=== PATIENT | male | born 1950 | race Caucasian/White ===

== ENCOUNTER 2017-10-03 07:52 | Day surgery (SDC) | payer OTHER, MEDICARE ==
[~2017-10-03] VITALS: Ht 177.8 cm; Wt 71.3 kg
[~2017-10-03 07:52] MED LIST: ASCO500; ASPI325; ATOR40TA PO; Amlodipine Besyl5 MG PO; BUPR100ER; CLOP75; ERGO400; ERGO50000; LEVO750 PO; LIDO5TP TOP; Lopressor 25 mg25 MG PO; MULVITMIND; PARO10; SIMV40; VARDENAFIL HCL
[2017-10-03] MEDS ORDERED: TIOT18 (08:33)
== END 2017-10-03 09:52 | disposition home or self-care (01) ==
LOC: ORSCSDS 07:52
PROVIDERS: Ophthalmology
PROC: 08RJ3JZ Replacement of Right Lens with Synthetic Substitute, Percutaneous Approach (ICD-10-PCS; principal; 2017-10-03 09:30)
DX: H25.11 Age-related nuclear cataract, right eye (principal); I25.2 Old myocardial infarction; J44.9 Chronic obstructive pulmonary disease, unspecified; I10 Essential (primary) hypertension; E78.00 Pure hypercholesterolemia, unspecified; F17.210 Nicotine dependence, cigarettes, uncomplicated; Z79.01 Long term (current) use of anticoagulants; Z79.82 Long term (current) use of aspirin; Z79.899 Other long term (current) drug therapy
CPT/HCPCS: J2250; J3301; J7040; V2632

== ENCOUNTER 2021-07-21 06:25 | Day surgery (SDC) | payer OTHER ==
[~2021-07-21] VITALS: Ht 177.8 cm; Wt 73.0 kg
[~2021-07-21 06:25] MED LIST changes: +ALBU90OI INH; +AMLO10 PO; -Amlodipine Besyl5 MG PO; +NITR.4SL SL; +TIOT18
--- NOTE | 2021-07-21 12:30 | NUR ---
ATTEMPTED TO RELEASE AIR FROM R RADIAL TR BAND, IT BLED. RE-INFALTED. NO LONGER BLEEDING OR HEMATOMA. VSS.RENITAN.
--- NOTE | 2021-07-21 13:05 | NUR ---
PT AIR DEFLATED FULLY FROM TR BAND. NO BLEEDING OR HEMATOMA NOTED. NADN. VSS. AMBULATES TO RESTROOM AND BACK WITHOUT DIFF.
--- NOTE | 2021-07-21 13:50 | NUR ---
PT TR BAND REMOVED. DOT CLOTH APPLIED WITH SPLINT AND SLING. IV DC'D. CATH INTACT. PRESSURE DSG IN PLACE. PT MINIMAL ASSISTANCE WITH DRESSING SELF. PT VERBALIZES UNDERSTANDING WRITTEN AND VERBAL INSTRUCTIONS. DENIES QUESTIONS. PT DC TO HOME VIA WC BY DAUGHTER.
== END 2021-07-21 13:50 | disposition home or self-care (01) ==
LOC: MHTC 06:25
PROC: 4A023N8 Measurement of Cardiac Sampling and Pressure, Bilateral, Percutaneous Approach (ICD-10-PCS; principal; 2021-07-21)
PROC: B2111ZZ Fluoroscopy of Multiple Coronary Arteries using Low Osmolar Contrast (ICD-10-PCS; principal; 2021-07-21)
DX: I08.0 Rheumatic disorders of both mitral and aortic valves (principal); I25.10 Atherosclerotic heart disease of native coronary artery without angina pectoris; I10 Essential (primary) hypertension; E78.5 Hyperlipidemia, unspecified; F17.210 Nicotine dependence, cigarettes, uncomplicated; Z86.718 Personal history of other venous thrombosis and embolism
CPT/HCPCS: 76937; 93460; 99152; 99153; C1769; C1894; J1644; J2250; J3010; J7030; J7050; Q9967

== ENCOUNTER 2022-02-07 06:19 | Day surgery (SDC) | payer OTHER ==
[~2022-02-07] VITALS: Ht 177.8 cm; Wt 73.0 kg
[2022-02-07] MEDS ORDERED: XARELTO20 MG PO (06:30)
[2022-02-07] MEDS ORDERED: FURO40 PO (06:30)
== END 2022-02-07 23:27 | disposition home or self-care (01) ==
LOC: MHTC 06:19
PROC: 5A2204Z Restoration of Cardiac Rhythm, Single (ICD-10-PCS; principal; 2022-02-07)
DX: I48.91 Unspecified atrial fibrillation (principal); I10 Essential (primary) hypertension; I25.10 Atherosclerotic heart disease of native coronary artery without angina pectoris; F17.200 Nicotine dependence, unspecified, uncomplicated; Z95.5 Presence of coronary angioplasty implant and graft; Z79.899 Other long term (current) drug therapy; Z79.01 Long term (current) use of anticoagulants
CPT/HCPCS: 92960; J2704; J7030

== ENCOUNTER 2022-08-21 19:34 | Inpatient (IN) | payer OTHER ==
[~2022-08-21] VITALS: Ht 180.3 cm; Wt 67.3 kg
[~2022-08-21 19:34] MED LIST changes: +Amiodarone HCl200 MG PO; +FURO40 PO; +PANT40 PO; +XARELTO20 MG PO
[2022-08-21 20:00] LABS: Mean Corpuscular HGB 31.3 pg (26.0-34.0); Mean Corpuscular HGB Conc 32.9 g/dL (31.5-36.5); Mean Corpuscular Volume 95 fL (80-100); Mean Platelet Volume 11.5 fL (9.1-12.4); NRBC ABSOLUTE 0.03 K/mm3 (0.00-0.02); NRBC Auto 0.2 /100 WBC (0.0-0.2); Platelet Count 208 K/mm3 (150-400); RDW Coefficient Variation 17.9 % (11.7-14.2); RDW Standard Deviation 62.2 fL (35.1-46.3); Red Blood Cell Count 1.79 M/mm3 (4.30-5.90); White Blood Cell Count 19.59 K/mm3 (4.00-11.30)
[2022-08-21 20:10] LABS: Albumin, Blood 3.4 g/dL (3.4-5.0); Albumin/Globulin Ratio 1.1 (0.8-1.8); Bilirubin, Total 0.4 mg/dL (0.1-1.0); Bun/Creatinine Ratio 23.6 (12.0-20.0); Calcium, Blood 8.3 mg/dL (8.5-10.1); Creatinine, Blood 1.44 mg/dL (0.60-1.20); Potassium, Blood 4.3 mmol/L (3.5-5.5); Total Protein, Blood 6.4 g/dL (6.4-8.2)
[2022-08-21 20:11] LABS: Hemoglobin 5.6 g/dL (13.5-17.5)
[2022-08-21 20:51] LABS: BAND PERCENT MAN 3 % (0-8); BASOPHILS PERCENT MAN 0 % (0-2); EOSINOPHILS PERCENT MAN 0 % (0-6); LYMPHOCYTES ABSOLUTE MAN 0.58 K/mm3 (0.84-5.20); LYMPHOCYTES PERCENT MAN 3 % (21-46); MONOCYTES ABSOLUTE MAN 0.19 K/mm3 (0.16-1.47); MONOCYTES PERCENT MAN 1 % (4-13); MYELOCYTE ABSOLUTE MAN 0.19 K/mm3 (0.00-0.00); MYELOCYTE PERCENT MAN 1 % (0-0); NEUTROPHILS ABSOLUTE MAN 18.61 K/mm3 (1.96-9.15); SEG NEUTROPHILS PERCENT MAN 92 % (41-73); TOTAL CELLS COUNTED 100
[2022-08-21 21:09] LABS: Hematocrit 15.2 % (37.0-53.0)
--- NOTE | 2022-08-21 22:15 | NUR ---
TRANSFER OF CARE NOTE RECEIVED REPORT FROM FAUSTO TONEY RN IN ER. PT ARRIVED IN [facility] A/Ox4 AND COOPERATIVE WITH CARE POVIDED BY STAFF. SEE ADMISSION ASSESSMENT FOR MORE DETAILS. PROTONIX AND BLOOD RUNNING ORDERED PER EMAR IN RIGHT IV ACCESS SITES. NO ADVERSE EFFECTS (SOB, ITCHING, RASH, INCREASE IN TEMP ETC.) NOTED UPON ARRIVAL. WILL CONTINUE BLOOD VITALS ON PAPER CHART. WILL CONTINUE TO LOOK THROUGH MD'S ORDERS. LEX WEINER UPON ARRIVAL
--- NOTE | 2022-08-22 03:13 | NUR ---
UPDATE STARTED SECOND UNIT OF PRBC's ORDERED PER EMAR. NO ADVERSE REACTION TO BLOOD PRODUCTS NOTED WITHIN FIRST 15MIN OF ADMINISTRATION. NO RASH, SOB, INCREASE IN TEMP, CHANGES IN HR/BP NOTED WITH ADMIN OF BLOOD. WILL CONTINUE TO MONITOR PT T/O TRANFUSION PROCCESS. NO NEW ORDERS AT THIS TIME. LEX, VSS
--- NOTE | 2022-08-22 05:10 | NUR ---
END OF SHIFT NOTE PT IS A/Ox4 AND IS COOPERATIVE WITH CARE PROVIDED BY MEMBERS OF STAFF. PT ARRIVED IN PCU 16 FROM THE ER AROUND 2230 ON 08/21/21. SEE TRANSFER OF SHIFT NOTE FOR MORE DETAILS. MAINTAINED SPO2 >90% T/O THE SHIFT WITH NO SOB OR DYSPNEA NOTED. CARDIAC PAGAN, BP HAS CONTINUED TO IMPROVE DURING BLOOD TRANSFUSIONS. NO CP OR PRESSURE REPORTED T/O THE SHIFT. NO INCONTINENCE OF BOWEL THIS SHIFT, BUT PT REPORTED EPISODES OF MELENA X2 WEEKS PRIOR TO ADMISSION. CONTINUES TO REPORT GENERAL WEAKNESS. 2ND UNIT OF PRBC'S IS CONTINING TO INFUSE OF THIS NOTE WITH NO ADVERSE REACTION NOTED. VSS, NADN T/O THE SHIFT. NO NEW ORDERS AT THIS TIME, WILL REPORT TO ONCOMING JOSE
[2022-08-22 08:17] LABS: Hematocrit 19.5 % (37.0-53.0); Hemoglobin 6.7 g/dL (13.5-17.5); Mean Corpuscular HGB 30.7 pg (26.0-34.0); Mean Corpuscular HGB Conc 34.4 g/dL (31.5-36.5); Platelet Count 158 K/mm3 (150-400); RDW Coefficient Variation 19.3 % (11.7-14.2); RDW Standard Deviation 62.6 fL (35.1-46.3); Red Blood Cell Count 2.18 M/mm3 (4.30-5.90); White Blood Cell Count 15.51 K/mm3 (4.00-11.30)
[2022-08-22 08:33] LABS: Bun/Creatinine Ratio 23.8 (12.0-20.0); Calcium, Blood 8.2 mg/dL (8.5-10.1); Creatinine, Blood 1.26 mg/dL (0.60-1.20); Potassium, Blood 3.8 mmol/L (3.5-5.5)
[2022-08-22 08:36] LABS: Mean Corpuscular Volume 89 fL (80-100)
--- NOTE | 2022-08-22 17:56 | NUR ---
SHIFT SUMMARY ASSUMED CARE AT 0700, A/A/OX4 DURING SHIFT. SBA IN ROOM, REPOSITIONS SELF ON BED. ONE DARK TARY STOOL DURING SHIFT, NO MELENA OBSERVED. CLEAR DIET TODAY, TOLERATED WELL. PROTONIX INFUSING AT 10ML/HR PER ORDERS. PREP ORDERED FOR TONIGHT FOR EGD TOMORROW, VSS, PLEASANT AND COOPERATIVE WITH CARE. WILL CONTINUE TO MONITOR AND TREAT UNTIL CHANGE OF SHIFT.
--- NOTE | 2022-08-23 05:32 | NUR ---
SHIFT SUMMARY PT IS A/Ox4 AND IS COOPERATIVE WITH CARE PROVIDED BY MEMBERS OF STAFF. ABLE TO ANSWER QUESTIONS APPROPRIATELY ALTHOUGH HE IS [place]. MAINTAINS SPO2 >90% ON RA WITH NO SOB OR DYSPNEA NOTED. CARDIAC PAGAN, PT IS SB-SR/ 50-60'S WITH NO NEW REPORTS OF CP OR PRESSURE. BP'S REMAIN STABLE. PT RECEIVED 1 UNIT PRBC'S DURING DAYSHIFT AND H&H CONTINUES TO TREND UP. PT RECEIVED BOWEL PREP ORDERD AND PASSED 3 LARGE BLACK/LIQUID BM'S. PT NPO SINCE MIDNIGHT FOR PROCEDURE THIS AM. ABLE TO ABULATE TO BSC, BUT PT STATES HE FEELS "WEAK". NADN, VSS T/O THE SHIFT. WILL REPORT INFORMATION TO ONCOMING DAYSHIFT NURSE
[2022-08-23 07:26] LABS: Hematocrit 24.1 % (37.0-53.0); Hemoglobin 8.3 g/dL (13.5-17.5); Mean Corpuscular HGB 30.2 pg (26.0-34.0); Mean Corpuscular HGB Conc 34.4 g/dL (31.5-36.5); Mean Corpuscular Volume 88 fL (80-100); Mean Platelet Volume 10.8 fL (9.1-12.4); NRBC ABSOLUTE 0.03 K/mm3 (0.00-0.02); NRBC Auto 0.3 /100 WBC (0.0-0.2); Platelet Count 148 K/mm3 (150-400); RDW Coefficient Variation 19.5 % (11.7-14.2); RDW Standard Deviation 62.2 fL (35.1-46.3); Red Blood Cell Count 2.75 M/mm3 (4.30-5.90); White Blood Cell Count 10.44 K/mm3 (4.00-11.30)
[2022-08-23 07:43] LABS: Bun/Creatinine Ratio 18.8 (12.0-20.0); Calcium, Blood 8.1 mg/dL (8.5-10.1); Creatinine, Blood 1.17 mg/dL (0.60-1.20); Potassium, Blood 3.8 mmol/L (3.5-5.5)
[2022-08-23 07:57] LABS: BASOPHILS PERCENT MAN 0 % (0-2); EOSINOPHILS PERCENT MAN 0 % (0-6); LYMPHOCYTES ABSOLUTE MAN 0.93 K/mm3 (0.84-5.20); LYMPHOCYTES PERCENT MAN 9 % (21-46); MONOCYTES PERCENT MAN 2 % (4-13); MYELOCYTE PERCENT MAN 1 % (0-0); NEUTROPHILS ABSOLUTE MAN 9.18 K/mm3 (1.96-9.15); SEG NEUTROPHILS PERCENT MAN 88 % (41-73); TOTAL CELLS COUNTED 100
--- NOTE | 2022-08-23 17:00 | NUR ---
PT RECENTLY HERE BY DIMITRIS WITH TELE IN PLACE, TELE NOTIFIED. Patient states colon prep results clear. History, Chart, Medications and Allergies reviewed before start of procedure.Lungs clear T/O to Auscultation. Patient confirms NPO status and agrees with scheduled surgery. Pre-Op teaching done. Pt verbalizes understanding.
--- NOTE | 2022-08-23 17:22 | NUR ---
08/23/22 1722 Joe Jj HISTORY, CHART, MEDICATIONS AND ALLERGIES REVIEWED BEFORE START OF PROCEDURE. PATIENT CONFIRMS NPO STATUS AND AGREES WITH SCHEDULED PROCEDURE. 3-LEAD EKG REVIEWED WITH PHYSICIAN PRIOR TO START OF PROCEDURE. MONITOR INTACT WITH CONTINUOUS PULSE OXIMETRY,CAPNOGRAPHY, 3-LEAD EKG, INTERMITTENT BP. SUPPLEMENTAL O2 TO BE TITRATED THROUGHOUT PROCEDURE TO MAINTAIN O2 SATURATION ABOVE 90%. PATIENT DETERMINED TO BE ASA APPROPRIATE FOR PROPOFOL SEDATION PRIOR TO START OF PROCEDURE BY DR. GONZALES.
--- NOTE | 2022-08-23 18:20 | NUR ---
SHIFT SUMMARY; ASSUMED CARE AT 0700, A/A/OX4 DURING SHIFT. BOWEL PREP FOR COLONOSCOPY STARTED LAST NIGHT. UP TO COMMODE SEVERAL TIMES WITH MINIMAL ASSIST. VSS, PLEASANT AND COOPERATIVE WITH CARE. NO MELANA DURING SHIFT, TAKEN TO DAY SURG FOR EGD IN EVENING, STILL IN PROCEDURE AT CHANGE OF SHIFT.
--- NOTE | 2022-08-23 18:31 | NUR ---
TO PCU FROM [facility] AT 1800, ANGIO COMPLETED, RIGHT WRIST SITE TR BAND INPLACE, NO SWELLING OR HEMATOMA, RADIAL PULSE PALBABLE.NO SEDATION MEDS GIVEN DURING PROCEDURE. 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
[2022-08-24 06:18] LABS: Hematocrit 25.4 % (37.0-53.0); Hemoglobin 8.6 g/dL (13.5-17.5)
[2022-08-24 09:17] LABS: Percent Saturation 7.3 % (20.0-50.0)
[2022-08-24] MEDS ORDERED: FERRIC X-150150 M1 PO (11:25)
== END 2022-08-24 12:23 | disposition home or self-care (01) | DRG 394 ==
LOC: ER 19:34 → PCU 20:48
PROVIDERS: Emergency Medicine; Internal Medicine; Student in an Organized Health Care Education/Training Program; ADMIT Internal Medicine
PROC: 30233N1 Transfusion of Nonautologous Red Blood Cells into Peripheral Vein, Percutaneous Approach (ICD-10-PCS; 2022-08-21)
PROC: 0DBH8ZZ Excision of Cecum, Via Natural or Artificial Opening Endoscopic (ICD-10-PCS; 2022-08-23)
PROC: 0DB58ZX Excision of Esophagus, Via Natural or Artificial Opening Endoscopic, Diagnostic (ICD-10-PCS; principal; 2022-08-23 09:45)
PROC: 0DBK8ZZ Excision of Ascending Colon, Via Natural or Artificial Opening Endoscopic (ICD-10-PCS; 2022-08-23 09:45)
PROC: 0DBL8ZZ Excision of Transverse Colon, Via Natural or Artificial Opening Endoscopic (ICD-10-PCS; 2022-08-23 09:45)
PROC: 0DBN8ZZ Excision of Sigmoid Colon, Via Natural or Artificial Opening Endoscopic (ICD-10-PCS; 2022-08-23 09:45)
DX: K63.5 Polyp of colon (principal); D62 Acute posthemorrhagic anemia; K92.2 Gastrointestinal hemorrhage, unspecified; N17.9 Acute kidney failure, unspecified; I25.10 Atherosclerotic heart disease of native coronary artery without angina pectoris; J44.9 Chronic obstructive pulmonary disease, unspecified; I10 Essential (primary) hypertension; D72.829 Elevated white blood cell count, unspecified; R91.1 Solitary pulmonary nodule; M48.00 Spinal stenosis, site unspecified; I48.0 Paroxysmal atrial fibrillation; M54.9 Dorsalgia, unspecified; G89.29 Other chronic pain; K44.9 Diaphragmatic hernia without obstruction or gangrene; K57.30 Diverticulosis of large intestine without perforation or abscess without bleeding; E78.5 Hyperlipidemia, unspecified; M19.90 Unspecified osteoarthritis, unspecified site; I34.0 Nonrheumatic mitral (valve) insufficiency; I35.0 Nonrheumatic aortic (valve) stenosis; I73.9 Peripheral vascular disease, unspecified; Z96.651 Presence of right artificial knee joint; Z96.611 Presence of right artificial shoulder joint; I25.2 Old myocardial infarction; Z98.890 Other specified postprocedural states; Z95.5 Presence of coronary angioplasty implant and graft; Z87.891 Personal history of nicotine dependence; Z79.01 Long term (current) use of anticoagulants; Z95.2 Presence of prosthetic heart valve; Z79.899 Other long term (current) drug therapy; Z79.02 Long term (current) use of antithrombotics/antiplatelets; Z79.51 Long term (current) use of inhaled steroids
CPT/HCPCS: 36415; 36430; 71046; 80048; 80053; 82728; 83540; 83550; 83880; 84484; 85014; 85018; 85025; 85027; 86803; 86850; 86900; 86901; 86923; 88305; 93005; 93010; 96365; 96376; 99285-25; A9270; C9113; J2704; J2765; J7030; J7040; J7120; P9016

== ENCOUNTER 2022-08-30 13:15 | Emergency (ER) | payer OTHER ==
[~2022-08-30] VITALS: Ht 180.3 cm; Wt 72.6 kg
[~2022-08-30 13:15] MED LIST changes: +FERRIC X-150150 M1 PO; -TIOT18; +TIOT18 INH
[2022-08-30 14:04] LABS: Hematocrit 29.3 % (37.0-53.0); Hemoglobin 9.5 g/dL (13.5-17.5); Mean Corpuscular HGB 29.9 pg (26.0-34.0); Mean Corpuscular HGB Conc 32.4 g/dL (31.5-36.5); Mean Corpuscular Volume 92 fL (80-100); Platelet Count 150 K/mm3 (150-400); RDW Standard Deviation 59.8 fL (35.1-46.3); Red Blood Cell Count 3.18 M/mm3 (4.30-5.90); White Blood Cell Count 9.32 K/mm3 (4.00-11.30)
[2022-08-30 14:09] LABS: Albumin, Blood 3.3 g/dL (3.4-5.0); Albumin/Globulin Ratio 1.1 (0.8-1.8); Bilirubin, Total 0.5 mg/dL (0.1-1.0); Bun/Creatinine Ratio 11.9 (12.0-20.0); Calcium, Blood 8.3 mg/dL (8.5-10.1); Creatinine, Blood 1.34 mg/dL (0.60-1.20); Globulin, Blood 3.1 g/dL (2.2-4.0); Potassium, Blood 3.6 mmol/L (3.5-5.5); Total Protein, Blood 6.4 g/dL (6.4-8.2)
[2022-08-30 15:53] LABS: BAND PERCENT MAN 3 % (0-8); BASOPHILS ABSOLUTE MAN 0.09 K/mm3 (0.00-0.23); BASOPHILS PERCENT MAN 1 % (0-2); EOSINOPHILS PERCENT MAN 0 % (0-6); LYMPHOCYTES PERCENT MAN 14 % (21-46); MONOCYTES ABSOLUTE MAN 0.09 K/mm3 (0.16-1.47); MONOCYTES PERCENT MAN 1 % (4-13); NEUTROPHILS ABSOLUTE MAN 7.82 K/mm3 (1.96-9.15); SEG NEUTROPHILS PERCENT MAN 81 % (41-73); TOTAL CELLS COUNTED 100
== END 2022-08-30 18:46 | disposition home or self-care (01) ==
LOC: ER 13:15
PROVIDERS: Emergency Medicine
DX: R07.89 Other chest pain (principal); I25.2 Old myocardial infarction; I10 Essential (primary) hypertension; J44.9 Chronic obstructive pulmonary disease, unspecified; E78.5 Hyperlipidemia, unspecified; F17.200 Nicotine dependence, unspecified, uncomplicated; Z79.02 Long term (current) use of antithrombotics/antiplatelets; Z79.899 Other long term (current) drug therapy
CPT/HCPCS: 71046; 80053; 84484; 85025; 93005; 93010; 99285-25

== ENCOUNTER 2022-09-05 07:27 | Emergency (ER) | payer OTHER ==
[~2022-09-05] VITALS: Ht 180.3 cm; Wt 72.6 kg
[~2022-09-05 07:27] MED LIST changes: +FAMO20 PO
[2022-09-05] MEDS ORDERED: XARELTO20 MG PO (08:01)
[2022-09-05 08:16] LABS: BASOPHILS ABSOLUTE AUTO 0.13 K/mm3 (0.00-0.23); BASOPHILS PERCENT AUTO 1 % (0-2); EOSINOPHILS ABSOLUTE AUTO 0.04 K/mm3 (0.00-0.68); EOSINOPHILS PERCENT AUTO 0 % (0-6); Hematocrit 22.7 % (37.0-53.0); Hemoglobin 7.6 g/dL (13.5-17.5); Mean Corpuscular HGB 29.8 pg (26.0-34.0); Mean Corpuscular HGB Conc 33.5 g/dL (31.5-36.5); Mean Corpuscular Volume 89 fL (80-100); Mean Platelet Volume 11.6 fL (9.1-12.4); Platelet Count 104 K/mm3 (150-400); RDW Coefficient Variation 20.1 % (11.7-14.2); RDW Standard Deviation 60.1 fL (35.1-46.3); Red Blood Cell Count 2.55 M/mm3 (4.30-5.90)
[2022-09-05 08:20] LABS: IMMATURE GRAN ABSOLUTE AUTO 0.07 K/mm3 (0.00-0.10); IMMATURE GRAN PERCENT AUTO 1 % (0-1); LYMPHOCYTES ABSOLUTE AUTO 0.96 K/mm3 (0.84-5.20); LYMPHOCYTES PERCENT AUTO 7 % (21-46); MONOCYTES ABSOLUTE AUTO 0.16 K/mm3 (0.16-1.47); MONOCYTES PERCENT AUTO 1 % (4-13); NEUTROPHILS ABSOLUTE AUTO 12.04 K/mm3 (1.96-9.15); NEUTROPHILS PERCENT AUTO 90 % (41-73)
[2022-09-05 08:24] LABS: Albumin, Blood 3.3 g/dL (3.4-5.0); Albumin/Globulin Ratio 1.2 (0.8-1.8); Bilirubin, Total 0.7 mg/dL (0.1-1.0); Bun/Creatinine Ratio 34.3 (12.0-20.0); Calcium, Blood 8.4 mg/dL (8.5-10.1); Creatinine, Blood 1.43 mg/dL (0.60-1.20); Globulin, Blood 2.8 g/dL (2.2-4.0); Potassium, Blood 3.8 mmol/L (3.5-5.5); Total Protein, Blood 6.1 g/dL (6.4-8.2)
== END 2022-09-05 17:25 | disposition home or self-care (01) ==
LOC: ER 07:27
PROVIDERS: Emergency Medicine
DX: K92.2 Gastrointestinal hemorrhage, unspecified (principal); I25.2 Old myocardial infarction; I10 Essential (primary) hypertension; J44.9 Chronic obstructive pulmonary disease, unspecified; E78.5 Hyperlipidemia, unspecified; F17.210 Nicotine dependence, cigarettes, uncomplicated; Z79.899 Other long term (current) drug therapy
CPT/HCPCS: 36415; 36430; 80053; 82272; 85025; 86850; 86900; 86901; 86923; 96374; 99285-25; C9113; J7030; P9016

== ENCOUNTER 2024-02-07 10:55 | Day surgery (SDC) | payer OTHER ==
[2024-02-07 11:45] LABS: BASOPHILS ABSOLUTE AUTO 0.01 K/mm3 (0.00-0.23); BASOPHILS PERCENT AUTO 0 % (0-2); EOSINOPHILS PERCENT AUTO 0 % (0-6); Hematocrit 27.7 % (37.0-53.0); Hemoglobin 9.5 g/dL (13.5-17.5); Mean Corpuscular HGB 32.1 pg (26.0-34.0); Mean Corpuscular HGB Conc 34.3 g/dL (31.5-36.5); Mean Corpuscular Volume 94 fL (80-100); RDW Coefficient Variation 17.3 % (11.7-14.2); RDW Standard Deviation 57.5 fL (35.1-46.3); Red Blood Cell Count 2.96 M/mm3 (4.30-5.90); White Blood Cell Count 2.84 K/mm3 (4.00-11.30)
[2024-02-07 11:51] LABS: IMMATURE GRAN ABSOLUTE AUTO 0.02 K/mm3 (0.00-0.10); IMMATURE GRAN PERCENT AUTO 1 % (0-1); LYMPHOCYTES ABSOLUTE AUTO 0.58 K/mm3 (0.84-5.20); LYMPHOCYTES PERCENT AUTO 20 % (21-46); MONOCYTES ABSOLUTE AUTO 0.04 K/mm3 (0.16-1.47); MONOCYTES PERCENT AUTO 1 % (4-13); NEUTROPHILS ABSOLUTE AUTO 2.19 K/mm3 (1.96-9.15); NEUTROPHILS PERCENT AUTO 77 % (41-73)
[2024-02-07 11:53] LABS: Platelet Count 5 K/mm3 (150-400)
[2024-02-07 12:22] LABS: BASOPHILS PERCENT MAN 0 % (0-2); EOSINOPHILS PERCENT MAN 0 % (0-6); LYMPHOCYTES ABSOLUTE MAN 0.34 K/mm3 (0.84-5.20); LYMPHOCYTES PERCENT MAN 12 % (21-46); MONOCYTES PERCENT MAN 0 % (4-13); NEUTROPHILS ABSOLUTE MAN 2.49 K/mm3 (1.96-9.15); SEG NEUTROPHILS PERCENT MAN 88 % (41-73); TOTAL CELLS COUNTED 100
[2024-02-07 12:41] LABS: Bilirubin, Total 1.9 mg/dL (0.1-1.0); Bun/Creatinine Ratio 25.4 (12.0-20.0); Calcium, Blood 8.4 mg/dL (8.5-10.1); Creatinine, Blood 0.95 mg/dL (0.60-1.20); Globulin, Blood 3.1 g/dL (2.2-4.0); Potassium, Blood 3.7 mmol/L (3.5-5.5); Total Protein, Blood 6.1 g/dL (6.4-8.2)
[2024-02-07] MEDS ORDERED: NS 250 ML IV SCH (12:50)
[2024-02-07 14:48] VITALS: BP 129/62
[2024-02-07 15:59] VITALS: BP 138/68
== END 2024-02-07 16:08 | disposition home or self-care (01) ==
LOC: ATC 10:55 → LAB SHORT 10:55 → EDSTATUS 12:07 → ATC 16:08
PROVIDERS: Internal Medicine Hematology & Oncology
DX: C92.00 Acute myeloblastic leukemia, not having achieved remission (principal); D69.6 Thrombocytopenia, unspecified; I10 Essential (primary) hypertension; I25.10 Atherosclerotic heart disease of native coronary artery without angina pectoris; J44.9 Chronic obstructive pulmonary disease, unspecified; E78.5 Hyperlipidemia, unspecified; E03.9 Hypothyroidism, unspecified; F17.210 Nicotine dependence, cigarettes, uncomplicated; Z79.890 Hormone replacement therapy; Z79.899 Other long term (current) drug therapy
CPT/HCPCS: 36415; 36430; 80053; 85025; 86900; 86901; J7050; P9035

== ENCOUNTER 2024-02-11 07:21 | Day surgery (SDC) | payer OTHER ==
[2024-02-11 14:20] LABS: Hematocrit 20.3 % (37.0-53.0); Hemoglobin 6.8 g/dL (13.5-17.5); Mean Corpuscular HGB 31.5 pg (26.0-34.0); Mean Corpuscular HGB Conc 33.5 g/dL (31.5-36.5); Mean Corpuscular Volume 94 fL (80-100); RDW Coefficient Variation 16.4 % (11.7-14.2); RDW Standard Deviation 55.2 fL (35.1-46.3); Red Blood Cell Count 2.16 M/mm3 (4.30-5.90)
[2024-02-11 14:25] LABS: Albumin, Blood 2.7 g/dL (3.4-5.0); Albumin/Globulin Ratio 0.9 (0.8-1.8); Bun/Creatinine Ratio 25.4 (12.0-20.0); Calcium, Blood 8.4 mg/dL (8.5-10.1); Creatinine, Blood 0.79 mg/dL (0.60-1.20); Globulin, Blood 3.1 g/dL (2.2-4.0); Potassium, Blood 4.6 mmol/L (3.5-5.5); Total Protein, Blood 5.8 g/dL (6.4-8.2)
[2024-02-11] MEDS ORDERED: NS 250 ML IV SCH (14:45)
[2024-02-11 15:11] LABS: BASOPHILS PERCENT AUTO 0 % (0-2); EOSINOPHILS PERCENT AUTO 0 % (0-6); IMMATURE GRAN PERCENT AUTO 0 % (0-1); LYMPHOCYTES ABSOLUTE AUTO 0.36 K/mm3 (0.84-5.20); LYMPHOCYTES PERCENT AUTO 44 % (21-46); MONOCYTES ABSOLUTE AUTO 0.01 K/mm3 (0.16-1.47); MONOCYTES PERCENT AUTO 1 % (4-13); NEUTROPHILS ABSOLUTE AUTO 0.45 K/mm3 (1.96-9.15); NEUTROPHILS PERCENT AUTO 55 % (41-73)
[2024-02-11 15:13] VITALS: BP 138/65
[2024-02-11 15:14] LABS: Platelet Count 8 K/mm3 (150-400); White Blood Cell Count 0.82 K/mm3 (4.00-11.30)
[2024-02-11 15:31] VITALS: BP 128/50
[2024-02-11 16:24] VITALS: BP 138/63
[2024-02-12] MEDS ORDERED: NS 250 ML IV SCH (13:05)
== END 2024-02-12 22:49 | disposition home or self-care (01) ==
LOC: ATC 07:21 → LAB SHORT 13:11 → EDSTATUS 14:07 → ATC 14:09
PROVIDERS: Internal Medicine Hematology & Oncology
DX: C92.00 Acute myeloblastic leukemia, not having achieved remission (principal); D69.6 Thrombocytopenia, unspecified; I25.10 Atherosclerotic heart disease of native coronary artery without angina pectoris; J44.9 Chronic obstructive pulmonary disease, unspecified; E78.5 Hyperlipidemia, unspecified; E03.9 Hypothyroidism, unspecified
CPT/HCPCS: 36415; 36430; 80053; 85025; 86850; 86900; 86901; 86923; J7050; P9035

== ENCOUNTER 2024-02-12 13:31 | Day surgery (SDC) | payer OTHER ==
[2024-02-12] MEDS ORDERED: NS 250 ML IV SCH (14:10)
[2024-02-12 14:48] VITALS: BP 105/47
[2024-02-12 15:04] VITALS: BP 112/54
[2024-02-12 16:34] VITALS: BP 95/79
[2024-02-12 16:54] VITALS: BP 136/59
[2024-02-12 17:55] VITALS: BP 143/75
[2024-02-12 18:25] VITALS: BP 155/71
== END 2024-02-12 18:33 | disposition home or self-care (01) ==
LOC: ATC 13:31
DX: C92.00 Acute myeloblastic leukemia, not having achieved remission (principal); D69.6 Thrombocytopenia, unspecified; I10 Essential (primary) hypertension; I25.10 Atherosclerotic heart disease of native coronary artery without angina pectoris; E78.5 Hyperlipidemia, unspecified; F17.200 Nicotine dependence, unspecified, uncomplicated; Z79.01 Long term (current) use of anticoagulants; Z79.899 Other long term (current) drug therapy
CPT/HCPCS: 36430; 86850; 86900; 86901; 86923; J7050; P9016

== ENCOUNTER 2024-02-14 21:18 | Inpatient (IN) | payer OTHER ==
[~2024-02-14] VITALS: Ht 180.3 cm; Wt 70.3 kg
[2024-02-14 21:50] LABS: Hematocrit 22.2 % (37.0-53.0); Hemoglobin 7.9 g/dL (13.5-17.5); Mean Corpuscular HGB 31.7 pg (26.0-34.0); Mean Corpuscular HGB Conc 35.6 g/dL (31.5-36.5); Mean Corpuscular Volume 89 fL (80-100); RDW Coefficient Variation 15.3 % (11.7-14.2); RDW Standard Deviation 49.1 fL (35.1-46.3); Red Blood Cell Count 2.49 M/mm3 (4.30-5.90)
[2024-02-14 21:56] LABS: Mean Platelet Volume 10.3 fL (9.1-12.4)
[2024-02-14 21:58] LABS: Platelet Count 7 K/mm3 (150-400); White Blood Cell Count 0.24 K/mm3 (4.00-11.30)
[2024-02-14] MEDS ORDERED: NS 1,000 ML IV SCH (22:10)
[2024-02-14 22:14] LABS: Alanine Aminotransfer (ALT/SGP 29 U/L (12-78); Albumin, Blood 2.6 g/dL (3.4-5.0); Albumin/Globulin Ratio 0.9 (0.8-1.8); Alk Phos 136 U/L (50-136); Anion Gap 11 mmol/L (3-11); Aspartate Aminotrans (AST/SGOT 22 U/L (12-37); Bilirubin, Total 2.6 mg/dL (0.1-1.0); Blood Urea Nitrogen 23 mg/dL (8-24); Bun/Creatinine Ratio 27.3 (12.0-20.0); CO2, Blood 24 mmol/L (21-32); Calcium, Blood 8.3 mg/dL (8.5-10.1); Chloride, Blood 105 mmol/L (98-108); Creatinine, Blood 0.84 mg/dL (0.60-1.20); Globulin, Blood 2.9 g/dL (2.2-4.0); Glomerular Filtration Rate 92 (60-); Glucose, Blood 122 mg/dL (70-99); Potassium, Blood 4.6 mmol/L (3.5-5.5); Sodium, Blood 135 mmol/L (136-145); Total Protein, Blood 5.5 g/dL (6.4-8.2)
[2024-02-14] MEDS ORDERED: CLOP75 PO (22:14)
[2024-02-14 22:15] LABS: BASOPHILS PERCENT MAN 0 % (0-2); EOSINOPHILS PERCENT MAN 0 % (0-6); LYMPHOCYTES ABSOLUTE MAN 0.21 K/mm3 (0.84-5.20); LYMPHOCYTES PERCENT MAN 88 % (21-46); MONOCYTES ABSOLUTE MAN 0.01 K/mm3 (0.16-1.47); MONOCYTES PERCENT MAN 8 % (4-13); SEG NEUTROPHILS PERCENT MAN 4 % (41-73); TOTAL CELLS COUNTED 25
[2024-02-14] MEDS ORDERED: ALLO100 PO (22:15)
[2024-02-14] MEDS ORDERED: GABA100 PO (22:16)
[2024-02-14] MEDS ORDERED: LEVSOD137 PO (22:17)
[2024-02-14 22:29] LABS: Ethanol (Alcohol), Blood, Med <3 mg/dL
[2024-02-14 22:55] LABS: International Normalized Ratio 1.55; Prothrombin Time Results 16.1 Sec (9.7-11.5)
[2024-02-15] MEDS ORDERED: CefTRIAXone Sodium 1,000 MG in NS 100 ML IV ONE (00:55)
[2024-02-15] MEDS ORDERED: Vancomycin HCL 2,000 MG in NS 520 ML IV ONE (00:55)
[2024-02-15] MEDS ORDERED: Ondansetron HCl 2 MG / ML 2ML Vial IV PRN (01:10)
[2024-02-15] MEDS ORDERED: Acetaminophen 325 MG TABLET PO PRN (01:10)
[2024-02-15] MEDS ORDERED: Nitroglycerin 0.4 MG SUBL SL PRN (02:45)
[2024-02-15] MEDS ORDERED: Albuterol HFA200 ACT/6.7 GM INH INH SCH (03:15)
[2024-02-15 03:59] LABS: Bilirubin, Direct 0.7 mg/dL (0.0-0.3); Bilirubin, Indirect 1.9 mg/dL (0.1-0.7); Magnesium, Blood 2.1 mg/dL (1.6-2.4); Phosphorus, Blood 4.1 mg/dL (2.5-4.9)
[2024-02-15 04:08] LABS: Bun/Creatinine Ratio 25.9 (12.0-20.0); Calcium, Blood 8.1 mg/dL (8.5-10.1); Creatinine, Blood 0.89 mg/dL (0.60-1.20); Potassium, Blood 4.4 mmol/L (3.5-5.5)
[2024-02-15] MEDS ORDERED: NS 1,000 ML IV ONE (04:09)
[2024-02-15] MEDS ORDERED: Diphth,Pertuss(Acell),Tet Vac 0.5 ML VIAL IM ONE (04:45)
[2024-02-15] MEDS ORDERED: Levothyroxine Sodium 0.137 MG Tab PO SCH (06:00)
[2024-02-15] MEDS ORDERED: Pantoprazole Sodium 40 MG Tab PO SCH (06:00)
[2024-02-15 07:03] LABS: Hematocrit 20.5 % (37.0-53.0); Hemoglobin 7.2 g/dL (13.5-17.5); Mean Corpuscular HGB 31.3 pg (26.0-34.0); Mean Corpuscular HGB Conc 35.1 g/dL (31.5-36.5); Mean Corpuscular Volume 89 fL (80-100); Mean Platelet Volume 9.4 fL (9.1-12.4); RDW Coefficient Variation 15.4 % (11.7-14.2)
[2024-02-15 07:05] LABS: White Blood Cell Count 0.28 K/mm3 (4.00-11.30)
[2024-02-15 07:06] LABS: Platelet Count 39 K/mm3 (150-400)
[2024-02-15] MEDS ORDERED: CeFAZolin Sodium 2,000 MG in NS 100 ML IV SCH (08:00)
[2024-02-15] MEDS ORDERED: Allopurinol 100 MG Tab PO SCH (09:00)
[2024-02-15] MEDS ORDERED: Amiodarone HCl 200 MG Tab PO SCH (09:00)
[2024-02-15 12:34] LABS: Source, Urine Clean Catch
[2024-02-15 12:46] LABS: Appearance, Urine Clear (Clear); Bilirubin, Urine Neg (Neg); Blood, Urine 2+ (Neg); Color, Urine Yellow (P-Yellow); Glucose Qualitative, Urine Neg (Neg); Ketones, Urine Neg (Neg); Leukocyte Esterase, Urine 1+ (Neg); Nitrite, Urine Neg (Neg); Protein, Urine 3+ (Neg); Specific Gravity, Urine 1.015 (1.003-1.022); Urobilinogen, Urine 2+ (Normal)
[2024-02-15 12:59] LABS: Bacteria Rare /hpf; Squamous Epithelial Cells Not Seen /hpf (Few)
[2024-02-15 13:10] LABS: U Amphetamine Screen Not Detected; U Opiates Screen DETECTED
[2024-02-15 13:11] LABS: U Barbituate Screen Not Detected; U Benzodiazapine Screen Not Detected; U Buprenorphine Screen Not Detected; U Cannabinoids Screen Not Detected; U Cocaine Screen Not Detected; U Methadone Screen Not Detected; U Methamphetamine Screen Not Detected; U Oxycodone Screen Not Detected; U Phencyclidine Screen Not Detected
[2024-02-15 13:53] LABS: Vancomycin, Trough 16.1 ug/mL (5.0-10.0)
[2024-02-15] MEDS ORDERED: Vancomycin HCL 750 MG in NS 250 ML IV SCH (14:00)
[2024-02-15 15:15] LABS: Acinetobacter baumannii DNA Not Detected copy/mL (NOT DETECT); Adenovirus DNA Not Detected (NOT DETECT); Chlamydia pneumonia Not Detected (NOT DETECT); Enterobacter cloacae DNA Not Detected copy/mL (NOT DETECT); Escherichia coli DNA Not Detected copy/mL (NOT DETECT); Haemophilus influenzae DNA Not Detected copy/mL (NOT DETECT); Human Coronavirus RNA Not Detected (NOT DETECT); Klebsiella aerogenes DNA Not Detected copy/mL (NOT DETECT); Klebsiella oxytoca DNA Not Detected copy/mL (NOT DETECT); Klebsiella pneumoniae DNA Not Detected copy/mL (NOT DETECT); Legionella pneumophila Not Detected (NOT DETECT); Moraxella catarrhalis DNA Not Detected copy/mL (NOT DETECT); Mycoplasma pneumoniae Not Detected (NOT DETECT); Proteus sp DNA Not Detected copy/mL (NOT DETECT); Pseudomonas aeruginosa DNA Not Detected copy/mL (NOT DETECT); Serratia marcescens DNA Not Detected copy/mL (NOT DETECT); Staphylococcus aureus DNA Not Detected copy/mL (NOT DETECT); Streptococcus agalactiae DNA Not Detected copy/mL (NOT DETECT); Streptococcus pneumoniae DNA Not Detected copy/mL (NOT DETECT); Streptococcus pyogenes DNA Not Detected copy/mL (NOT DETECT)
[2024-02-15 15:16] LABS: Human Metapneumovirus RNA Not Detected (NOT DETECT); Influenza virus A RNA Not Detected (NOT DETECT); Influenza virus B RNA Not Detected (NOT DETECT); Parainfluenza virus RNA Not Detected (NOT DETECT); Respiratory syncytial Vir RNA Not Detected (NOT DETECT); Rhinovirus+Enterovirus RNA Not Detected (NOT DETECT)
[2024-02-15] MEDS ORDERED: Cefepime HCl 2,000 MG in NS 100 ML IV SCH (16:00)
[2024-02-15] MEDS ORDERED: Fluconazole 100 MG Tab PO SCH (16:00)
[2024-02-15 16:22] VITALS: BP 109/73
[2024-02-15] MEDS ORDERED: NS 500 ML IV ONE (17:00)
[2024-02-15] MEDS ORDERED: NS 500 ML IV SCH (17:55)
[2024-02-15] MEDS ORDERED: Atorvastatin 40 MG Tab PO SCH (18:00)
--- NOTE | 2024-02-15 19:03 | NUR ---
ADMIT SUMMARY: PT ADMITTED TO MEDICAL FLOOR RM 335. PT IS A/O X 4, 2 ASSIST DUE TO WEAKNESS AND GLF AT HOME. PLEASANT AND COOPERATIVE AND VERY [place]. PT ARRIVED VIA GURNEY, SLIDE TX TO BED, PLACED IN AIRBORNE PRECAUTIONS DUE TO TB RULE OUT. PT ON 6 LPM VIA MO ON ARRIVAL. SATS 97%. PLACED ON CONTINUOS BIOX. RESPIRATIONS 24 AND SOB WITHOUT SPEAKING. PT DENIES CP/PRESSURE. PAIN IS REPORTED A 5/10 "ALL OVER". PT STATES "I LIVE AT A FIVE." DENIES NEEDING PAIN MEDICATIONS. MULTIPLE BRUISING TO BILAT ARMS, BACK FROM FALL. PT HAS STAGE 2 PRESSURE WOUND 1x3 CM TO COCCYX. MEPILEX APPLIED. DR. MAE NOTIFIED OF PRESSURE WOUND. WOUNDS PHOTOGRAPHED WITH VERBAL PERMISSION FROM PT. PT ORIENTED TO ROOM, CALL LIGHT, FALL PRECAUTIONS. BED ALARM ON AND BED IN LOW POSITION. ICE WATER AND CRACKERS SUPPLIED AT HIS REQUEST. ABX STARTED.
[2024-02-15 20:15] VITALS: BP 141/64
[2024-02-15] MEDS ORDERED: Gabapentin 100 MG Cap PO SCH (21:00)
[2024-02-15] MEDS ORDERED: Acyclovir 400 MG Tab PO SCH (21:00)
[2024-02-15] MEDS ORDERED: CefTRIAXone Sodium 1,000 MG in NS 100 ML IV SCH (21:00)
[2024-02-16] VITALS (10 sets, daily range): BP systolic 124–151; BP diastolic 55–118
[2024-02-16 05:27] LABS: Hematocrit 20.2 % (37.0-53.0); Hemoglobin 6.8 g/dL (13.5-17.5); Mean Corpuscular HGB 30.5 pg (26.0-34.0); Mean Corpuscular HGB Conc 33.7 g/dL (31.5-36.5); Mean Corpuscular Volume 91 fL (80-100); Mean Platelet Volume 9.4 fL (9.1-12.4); RDW Coefficient Variation 15.5 % (11.7-14.2); RDW Standard Deviation 50.3 fL (35.1-46.3); Red Blood Cell Count 2.23 M/mm3 (4.30-5.90)
[2024-02-16 05:44] LABS: White Blood Cell Count 0.29 K/mm3 (4.00-11.30)
[2024-02-16 05:45] LABS: Platelet Count 16 K/mm3 (150-400)
[2024-02-16 05:53] LABS: Albumin, Blood 2.4 g/dL (3.4-5.0); Albumin/Globulin Ratio 0.8 (0.8-1.8); Bilirubin, Total 2.1 mg/dL (0.1-1.0); Bun/Creatinine Ratio 28.1 (12.0-20.0); Calcium, Blood 8.8 mg/dL (8.5-10.1); Creatinine, Blood 0.85 mg/dL (0.60-1.20); Globulin, Blood 3.1 g/dL (2.2-4.0); Total Protein, Blood 5.5 g/dL (6.4-8.2)
[2024-02-16 05:57] LABS: BASOPHILS PERCENT MAN 0 % (0-2); EOSINOPHILS PERCENT MAN 0 % (0-6); LYMPHOCYTES ABSOLUTE MAN 0.29 K/mm3 (0.84-5.20); LYMPHOCYTES PERCENT MAN 100 % (21-46); MONOCYTES PERCENT MAN 0 % (4-13); TOTAL CELLS COUNTED 25
--- NOTE | 2024-02-16 11:00 | NUR ---
ONE UNIT PRBC INFUSING, KENROY GARCIA VERIFIED, PATIETN CALM, NO S/S OF DISTRESS. VSS, CALL LIGHT WITH IN REACH
[2024-02-16 15:31] LABS: Vancomycin, Trough 12.7 ug/mL (5.0-10.0)
[2024-02-16] MEDS ORDERED: Vancomycin HCL 750 MG in NS 250 ML IV SCH (16:00)
--- NOTE | 2024-02-16 17:41 | NUR ---
ALERT AND ORIENTED TO ALL, SON VISITED TODAY, CLEARLY MAKES NEEDS KNOWN, INCREASED SOB WITH STANDING AT BEDSIDE, INFUSED ONE UNTI PRBC TODAY. 5L O2 VIA NC, INDEPEDANT TO REPOSITION SELF IN BED, USES CALL LIGHT APPROPRIAYELY. DENIES PAIN, CALL LIGHT WITH IN REACH, WILL RELAY TO PM N
[2024-02-17] VITALS (9 sets, daily range): BP systolic 132–148; BP diastolic 63–96
--- NOTE | 2024-02-17 04:36 | NUR ---
SHIFT SUMMARY: Pt admitted for multifocal PNA and is a full code. Is alert and able to make needs known. ADLs have been 1p but did not get out of bed during shift. On ISO for TB rule out. Denies pain or discomfort when asked. On 5 lpm via NC to maintain SPO2 greater than 90%.
[2024-02-17 05:06] LABS: Hematocrit 20.7 % (37.0-53.0); Mean Corpuscular HGB Conc 33.8 g/dL (31.5-36.5); Mean Corpuscular Volume 92 fL (80-100); Mean Platelet Volume 12.6 fL (9.1-12.4); RDW Coefficient Variation 15.6 % (11.7-14.2); RDW Standard Deviation 50.5 fL (35.1-46.3); RETICULOCYTE ABSOLUTE 0.0075 M/mm3 (0.0200-0.1100); RETICULOCYTE COUNT PERCENT 0.33 % (0.50-2.50); Red Blood Cell Count 2.26 M/mm3 (4.30-5.90)
[2024-02-17 05:10] LABS: BASOPHILS PERCENT AUTO 0 % (0-2); EOSINOPHILS PERCENT AUTO 0 % (0-6); IMMATURE GRAN PERCENT AUTO 0 % (0-1); LYMPHOCYTES ABSOLUTE AUTO 0.16 K/mm3 (0.84-5.20); LYMPHOCYTES PERCENT AUTO 84 % (21-46); MONOCYTES ABSOLUTE AUTO 0.01 K/mm3 (0.16-1.47); MONOCYTES PERCENT AUTO 5 % (4-13); NEUTROPHILS ABSOLUTE AUTO 0.02 K/mm3 (1.96-9.15); NEUTROPHILS PERCENT AUTO 11 % (41-73)
[2024-02-17 05:12] LABS: Platelet Count 8 K/mm3 (150-400); White Blood Cell Count 0.19 K/mm3 (4.00-11.30)
[2024-02-17 05:24] LABS: Albumin, Blood 2.1 g/dL (3.4-5.0); Albumin/Globulin Ratio 0.7 (0.8-1.8); Bilirubin, Total 2.2 mg/dL (0.1-1.0); Bun/Creatinine Ratio 35.4 (12.0-20.0); Calcium, Blood 8.6 mg/dL (8.5-10.1); Creatinine, Blood 0.76 mg/dL (0.60-1.20); Globulin, Blood 3.2 g/dL (2.2-4.0); Potassium, Blood 3.8 mmol/L (3.5-5.5); Total Protein, Blood 5.3 g/dL (6.4-8.2)
--- NOTE | 2024-02-17 05:41 | NUR ---
Dr. López notified by phone of WBC 0.18, PLT 8, HGB 7. he entered orders for 1 unit PRBC and PLTs.
[2024-02-17 15:37] LABS: Vancomycin, Random 14.8 ug/mL
[2024-02-17] MEDS ORDERED: OxyCODONE HCL 5 MG TAB PO PRN (16:45)
--- NOTE | 2024-02-17 17:48 | NUR ---
NO ACUTE CHANGES, TRANSFUSED PRBC ABD PLATELETS TODAY. SON VISITED, POOR APPETITE, CLEARLY MAKES NEEDS KNOWN, NC 5L, SATS 95%, POOR PERFUSION, PATIENT REQUESTED PAIN MEDICATIONS, MEDICATED WITH OXY 5 FOR PAIN, CALL LIGHT WITH IN REACH, WILL RELAY TO PM JOSE
[2024-02-17] MEDS ORDERED: Albuterol HFA200 ACT/6.7 GM INH INH SCH (18:30)
[2024-02-18 04:14] VITALS: BP 130/63
[2024-02-18 05:38] LABS: Hemoglobin 7.3 g/dL (13.5-17.5); Mean Corpuscular HGB 30.2 pg (26.0-34.0); Mean Corpuscular HGB Conc 33.2 g/dL (31.5-36.5); Mean Corpuscular Volume 91 fL (80-100); Mean Platelet Volume 11.2 fL (9.1-12.4); RDW Coefficient Variation 15.5 % (11.7-14.2); RDW Standard Deviation 50.6 fL (35.1-46.3); Red Blood Cell Count 2.42 M/mm3 (4.30-5.90)
[2024-02-18 05:42] LABS: BASOPHILS PERCENT AUTO 0 % (0-2); EOSINOPHILS PERCENT AUTO 0 % (0-6); IMMATURE GRAN PERCENT AUTO 0 % (0-1); LYMPHOCYTES ABSOLUTE AUTO 0.12 K/mm3 (0.84-5.20); LYMPHOCYTES PERCENT AUTO 80 % (21-46); MONOCYTES ABSOLUTE AUTO 0.02 K/mm3 (0.16-1.47); MONOCYTES PERCENT AUTO 13 % (4-13); NEUTROPHILS ABSOLUTE AUTO 0.01 K/mm3 (1.96-9.15); NEUTROPHILS PERCENT AUTO 7 % (41-73)
[2024-02-18 05:43] LABS: Platelet Count 21 K/mm3 (150-400)
[2024-02-18 05:44] LABS: White Blood Cell Count 0.15 K/mm3 (4.00-11.30)
[2024-02-18 06:09] LABS: Albumin, Blood 2.2 g/dL (3.4-5.0); Albumin/Globulin Ratio 0.7 (0.8-1.8); Bilirubin, Total 2.3 mg/dL (0.1-1.0); Bun/Creatinine Ratio 33.6 (12.0-20.0); Calcium, Blood 8.8 mg/dL (8.5-10.1); Creatinine, Blood 0.77 mg/dL (0.60-1.20); Globulin, Blood 3.2 g/dL (2.2-4.0); Potassium, Blood 3.7 mmol/L (3.5-5.5); Total Protein, Blood 5.4 g/dL (6.4-8.2)
[2024-02-18] MEDS ORDERED: Ipratropium/Albuterol SulF 2.5-0.5MG/3 ML Amp INH PRN (06:20)
--- NOTE | 2024-02-18 06:27 | NUR ---
SHIFT SUMMARY: Pt admitted for multifocal PNA and is a full code. Is alert and able to make needs known. ADLs have been 1p but did not get out of bed during shift. On ISO for TB rule out. Pain was managed with PRN pain management. On 5 lpm via NC to maintain SPO2 greater than 90%.
[2024-02-18 07:43] VITALS: BP 142/70
[2024-02-18] MEDS ORDERED: Benzocaine Oral Spray 0.5ML UD MT PRN (08:50)
[2024-02-18] MEDS ORDERED: Furosemide 10 MG / ML 2ML Vial IV SCH (13:00)
[2024-02-18] MEDS ORDERED: Piperacillin/Tazobactam Sod 4.5 GM in NS 100 ML IV SCH (14:00)
[2024-02-18 15:32] VITALS: BP 143/56
[2024-02-18 15:34] LABS: Vancomycin, Trough 17.5 ug/mL (5.0-10.0)
--- NOTE | 2024-02-18 17:00 | NUR ---
VSS, A-Ox4, denies any pain, denies SOB, ambulates with 2x assist, on 6L NC. Lungs diminished, heart regular, bowel sounds normative, l elbow dressing C/D/I, scarum meplex C/D/I. Pt can make needs known, call guallpa in hand, bed in lowest position.
[2024-02-18 19:47] VITALS: BP 155/68
[2024-02-18] MEDS ORDERED: Ondansetron HCl 2 MG / ML 2ML Vial IV PRN (22:05)
--- NOTE | 2024-02-18 23:54 | NUR ---
VOICED DIFFICULTY TO VOID, IV LASIX ADMINISTERED OREDERED. URINAL IN REACH. IV ABX INFUSING. CALL LIGHT IN REACH. ISOLATION PRECAUTIONS CONTINUE
[2024-02-19] MEDS ORDERED: Simethicone 80 MG Chew PO PRN (01:45)
[2024-02-19 03:24] VITALS: BP 158/76
--- NOTE | 2024-02-19 04:45 | NUR ---
SPORTS MARKETER SUMMARY VSS. REMAINS IN AIRBORNE ISOLATION FOR R/O TB, TEST RESULTS NOT BACK YET. ALERT AND ORIENTED TO QUESTIONS ASKED. O2 PER NC AT 6L/MIN. IVF AND ANTIBIOTICS INFUSING - SEE MAR FOR DETAILS. SOME C/O NAUSEA AND BLOATING. MD NOTIFIED AND ZOFRAN AND SIMETHICONE PRN ORDERED, MEDS SOMEWHAT EFFECTIVE. REMAINS WEAK, USES URINAL HAS BEEN RESTING INTERMITTENTLY THROUGH SHIFT. ABLE TO REPOSITION SELF IN BED WITHOUT ASSIST. CALL LIGHT IN REACH, RAILS UP X 2 AND BED IN LOW POSITION FOR SAFETY. WILL CONTINUE TO MONITOR
[2024-02-19 05:54] LABS: Hemoglobin 7.8 g/dL (13.5-17.5); Mean Corpuscular HGB 30.5 pg (26.0-34.0); Mean Corpuscular HGB Conc 33.9 g/dL (31.5-36.5); Mean Corpuscular Volume 90 fL (80-100); Mean Platelet Volume 13.4 fL (9.1-12.4); RDW Coefficient Variation 15.5 % (11.7-14.2); RDW Standard Deviation 50.1 fL (35.1-46.3); Red Blood Cell Count 2.56 M/mm3 (4.30-5.90)
[2024-02-19 06:00] LABS: Platelet Count 14 K/mm3 (150-400); White Blood Cell Count 0.17 K/mm3 (4.00-11.30)
[2024-02-19 06:07] LABS: Bun/Creatinine Ratio 33.1 (12.0-20.0); Calcium, Blood 8.6 mg/dL (8.5-10.1); Creatinine, Blood 0.94 mg/dL (0.60-1.20); Potassium, Blood 3.1 mmol/L (3.5-5.5)
[2024-02-19 06:19] LABS: BASOPHILS PERCENT MAN 0 % (0-2); EOSINOPHILS PERCENT MAN 0 % (0-6); LYMPHOCYTES % ATYPICAL MANUAL 4 % (0-0); LYMPHOCYTES ABSOLUTE MAN 0.15 K/mm3 (0.84-5.20); LYMPHOCYTES PERCENT MAN 88 % (21-46); MONOCYTES PERCENT MAN 4 % (4-13); SEG NEUTROPHILS PERCENT MAN 4 % (41-73); TOTAL CELLS COUNTED 25
--- NOTE | 2024-02-19 06:19 | NUR ---
CALLED DR TORREZ RE PLATELETS OF 14, NO NEW ORDERS AT THIS TIME.
[2024-02-19] MEDS ORDERED: Potassium Chloride 20 MEQ TabCR PO ONE ×2 (07:00→10:20)
[2024-02-19 08:14] VITALS: BP 151/73
[2024-02-19] MEDS ORDERED: Polyethylene Glycol 3350 17 gm PO PRN (09:15)
[2024-02-19] MEDS ORDERED: Sod Phosphate/Sod Biphosphate 132 ML BTL PR ONE (09:16)
--- NOTE | 2024-02-19 11:57 | NUR ---
Case Conference: Spoke with pt's son/KHOI Barragan today regarding Dr. Medeiros consultation, including his thoughts on "full code" status. Pk Barragan states he isn't suprised by the poor prognosis, states his dad's overall health has been steadily declining for several months. He is planning to come see the patient and have a discussion regarding code status as well as pt's goals moving forward. He's bringing a copy of pt's advace directive in as well. We did discuss the different paths available, including hospice and will speak to the patient when he arrives. One of pk Barragan's biggest concerns is that pt lives alone, feels much better knowing there options available. Plan to meet with pt and son this afternoon.
[2024-02-19] MEDS ORDERED: Sennosides 8.6 MG Tab PO PRN (13:35)
--- NOTE | 2024-02-19 13:47 | NUR ---
Code Status updated, pt and son discussed and pt decided on DNR status. Dr. Maddxo notified.
[2024-02-19] MEDS ORDERED: Peg 400/Hypromellose/Glycerin 15 DROP/ML BTL BOTHEYES PRN (14:05)
[2024-02-19 15:07] VITALS: BP 134/60
[2024-02-19 19:19] VITALS: BP 141/67
--- NOTE | 2024-02-19 19:41 | NUR ---
VSS, A-Ox4, denies SOB, denies pain, ambulates with 1-2x assist to bedside comodo, on 5L NC. Lungs diminished, heart regular, bowel sounds hypoactive, abdomen firm and tender, MD notifed, fleet enema given per order, pt had small loose BM, bowel meds order by MD. Pt can make needs known, call guallpa in hand, bed in lowest position.
[2024-02-19] MEDS ORDERED: Arginine/Glutamine/Calcium Hmb 1 Packet PO SCH (21:00)
[2024-02-20 03:26] VITALS: BP 134/86
--- NOTE | 2024-02-20 03:33 | NUR ---
PRODUCT MARKETING MANAGER SUMMARY VSS. ALERT AND ORIENTED. O2 WAS INCREASED TO 7L/MIN PER NC BY THE RT (UP FROM 5L/MIN). ASYMPTOMATIC. O2 SATS IN THE 90'S. REMAINS ON AIRBORNE ISOLATION UNTIL TB CAN BE RULED OUT. IV ANTIBIOTICS INFUSING AND TOLERATING PO MEDS WELL. SEE MAR FOR DETAILS. APPEARS MORE ALERT THIS SHIFT THAN NOTED 24 HR PREVIOUS. REQUESTED AND RECEIVED "JELLO", VOICED WAS HUNGRY. NOTE DIETARY INTAKE BETTER THAN 24 HR AGO. HAS BEEN RESTING QUIETLY WITH INTERMITTENT BOUTS OF WAKEFULNESS. ABLE TO REPOSITION SELF IN BED FOR COMFORT. CALL LIGHT IN REACH, RAILS UP X 2 AND BED IN LOW POSITION FOR SAFETY. WILL CONTINUE TO MONITOR.
[2024-02-20 05:30] LABS: Hematocrit 21.1 % (37.0-53.0); Hemoglobin 7.1 g/dL (13.5-17.5); Mean Corpuscular HGB 30.5 pg (26.0-34.0); Mean Corpuscular HGB Conc 33.6 g/dL (31.5-36.5); Mean Corpuscular Volume 91 fL (80-100); RDW Coefficient Variation 15.4 % (11.7-14.2); RDW Standard Deviation 49.8 fL (35.1-46.3); Red Blood Cell Count 2.33 M/mm3 (4.30-5.90)
[2024-02-20 05:50] LABS: Albumin/Globulin Ratio 0.6 (0.8-1.8); BASOPHILS PERCENT AUTO 0 % (0-2); Bilirubin, Total 2.2 mg/dL (0.1-1.0); Bun/Creatinine Ratio 32.3 (12.0-20.0); Calcium, Blood 8.6 mg/dL (8.5-10.1); Creatinine, Blood 0.93 mg/dL (0.60-1.20); EOSINOPHILS PERCENT AUTO 0 % (0-6); Globulin, Blood 3.2 g/dL (2.2-4.0); IMMATURE GRAN PERCENT AUTO 0 % (0-1); LYMPHOCYTES ABSOLUTE AUTO 0.11 K/mm3 (0.84-5.20); LYMPHOCYTES PERCENT AUTO 79 % (21-46); MONOCYTES ABSOLUTE AUTO 0.02 K/mm3 (0.16-1.47); MONOCYTES PERCENT AUTO 14 % (4-13); NEUTROPHILS ABSOLUTE AUTO 0.01 K/mm3 (1.96-9.15); NEUTROPHILS PERCENT AUTO 7 % (41-73); Potassium, Blood 3.4 mmol/L (3.5-5.5); Total Protein, Blood 5.2 g/dL (6.4-8.2)
[2024-02-20 05:51] LABS: Platelet Count 6 K/mm3 (150-400); White Blood Cell Count 0.14 K/mm3 (4.00-11.30)
[2024-02-20 06:23] LABS: BASOPHILS PERCENT MAN 0 % (0-2); EOSINOPHILS PERCENT MAN 0 % (0-6); LYMPHOCYTES ABSOLUTE MAN 0.12 K/mm3 (0.84-5.20); LYMPHOCYTES PERCENT MAN 92 % (21-46); MONOCYTES PERCENT MAN 0 % (4-13); NEUTROPHILS ABSOLUTE MAN 0.01 K/mm3 (1.96-9.15); SEG NEUTROPHILS PERCENT MAN 8 % (41-73); TOTAL CELLS COUNTED 25
[2024-02-20] MEDS ORDERED: Potassium Chloride 20 MEQ TabCR PO ONE (06:42)
--- NOTE | 2024-02-20 06:45 | NUR ---
LAB CALLED WITH PLATELET COUNT OF 6 (DOWN FROM 14), MD NOTIFIED AND MD ORDERED ONE UNIT OF PLATELETS TO BE ADMINISTERED. ORDER PLACED, PT NOTIFIED. PT ASYMPTOMATIC. CALL LIGHT IN REACH
--- NOTE | 2024-02-20 06:48 | NUR ---
ADDENDUM TO PREVIOUS NOTE: ALSO NOTIFIFED OF WBC 0.14 - DOWN CROM 0.17. NO NEW ORDERS FOR THIS
[2024-02-20 09:51] VITALS: BP 138/76
[2024-02-20 10:18] VITALS: BP 139/79
[2024-02-20 11:57] VITALS: BP 143/73
[2024-02-20 14:28] VITALS: BP 139/86
[2024-02-20 16:06] LABS: Vancomycin, Trough 18.5 ug/mL (5.0-10.0)
--- NOTE | 2024-02-20 17:59 | NUR ---
VSS, A-Ox4, denies SOB, denies any pain, ambulates with 1-2 assist to bedside comodo, on 4L NC. Lungs diminished, heart regular, bowel sounds hypoative, abdomen distended and firm, passing gas, 1 unit of platles transfused per order, spill urinal frequently due to contracted hand. Pt can make needs known, call guallpa in hand, bed in lowest position.
[2024-02-20] MEDS ORDERED: Furosemide 10 MG / ML 2ML Vial IV SCH (18:00)
[2024-02-20 20:27] VITALS: BP 134/62
[2024-02-21] VITALS (7 sets, daily range): BP systolic 123–143; BP diastolic 63–88
[2024-02-21 01:37] LABS: QUANTIFERON MITOGEN MINUS NIL 3.99 IU/mL; QUANTIFERON NIL 0.04 IU/mL; QUANTIFERON PLUS TB1 MINUS NIL 0.02 IU/mL (<=0.34); QUANTIFERON PLUS TB2 MINUS NIL 0.02 IU/mL (<=0.34)
--- NOTE | 2024-02-21 04:41 | NUR ---
REPORT RECEIVED FROM PREVIOUSN SHIFT. PT CARE ASSUMED. NO C/O PAIN VOICED THROUGH THE NIGHT.PT RESTING INTERMITTENTLY. PT ASSISTED AND ENCOURAGED TO REPOSITION. AFFECT FLAT. NO DISTRESS NOTED.
[2024-02-21 05:15] LABS: Hematocrit 18.6 % (37.0-53.0); Hemoglobin 6.3 g/dL (13.5-17.5); Mean Corpuscular HGB 30.7 pg (26.0-34.0); Mean Corpuscular HGB Conc 33.9 g/dL (31.5-36.5); Mean Corpuscular Volume 91 fL (80-100); Mean Platelet Volume 10.4 fL (9.1-12.4); RDW Coefficient Variation 15.5 % (11.7-14.2); RDW Standard Deviation 51.2 fL (35.1-46.3); Red Blood Cell Count 2.05 M/mm3 (4.30-5.90)
[2024-02-21 05:33] LABS: Bun/Creatinine Ratio 35.8 (12.0-20.0); Calcium, Blood 8.8 mg/dL (8.5-10.1); Creatinine, Blood 0.95 mg/dL (0.60-1.20); Magnesium, Blood 2.4 mg/dL (1.6-2.4); Phosphorus, Blood 3.2 mg/dL (2.5-4.9); Potassium, Blood 3.3 mmol/L (3.5-5.5)
[2024-02-21 05:40] LABS: BASOPHILS PERCENT AUTO 0 % (0-2); EOSINOPHILS PERCENT AUTO 0 % (0-6); IMMATURE GRAN PERCENT AUTO 0 % (0-1); LYMPHOCYTES ABSOLUTE AUTO 0.17 K/mm3 (0.84-5.20); LYMPHOCYTES PERCENT AUTO 90 % (21-46); MONOCYTES ABSOLUTE AUTO 0.02 K/mm3 (0.16-1.47); MONOCYTES PERCENT AUTO 11 % (4-13); NEUTROPHILS PERCENT AUTO 0 % (41-73)
[2024-02-21 05:43] LABS: Platelet Count 32 K/mm3 (150-400); White Blood Cell Count 0.19 K/mm3 (4.00-11.30)
[2024-02-21 06:01] LABS: BASOPHILS PERCENT MAN 0 % (0-2); EOSINOPHILS PERCENT MAN 0 % (0-6); LYMPHOCYTES ABSOLUTE MAN 0.16 K/mm3 (0.84-5.20); LYMPHOCYTES PERCENT MAN 88 % (21-46); MONOCYTES PERCENT MAN 4 % (4-13); NEUTROPHILS ABSOLUTE MAN 0.01 K/mm3 (1.96-9.15); SEG NEUTROPHILS PERCENT MAN 8 % (41-73); TOTAL CELLS COUNTED 25
[2024-02-21] MEDS ORDERED: Potassium Chloride 20 MEQ TabCR PO ONE ×2 (07:00→10:45)
[2024-02-21 11:12] LABS: (1,3)-BETA-D-GLUCAN <31 pg/mL; (1,3)-BETA-D-GLUCAN INTERP Negative (Negative)
[2024-02-21 16:52] LABS: Hematocrit 22.1 % (37.0-53.0); Hemoglobin 7.6 g/dL (13.5-17.5)
--- NOTE | 2024-02-21 19:41 | NUR ---
VSS, denies SOB, states 8 out of 10 pain that was well managed with prn oxycodone, A-Ox4, states mild nause that was well managed with prn zofran, ambulates with 1-2x assist to bedside commode, on 6L NC. Lungs dimisihed, heart regular, bowel sound normative, abdomen firm and distended, prn bowel meds given, 1 unit of RBC given per order for H of 6.3, recheck was 7.6. Pt can make needs known, call guallpa in hand, bed in lowest position.
[2024-02-22] VITALS (10 sets, daily range): BP systolic 121–145; BP diastolic 54–90
[2024-02-22 06:19] LABS: Hematocrit 21.1 % (37.0-53.0); Hemoglobin 7.2 g/dL (13.5-17.5); Mean Corpuscular HGB 29.9 pg (26.0-34.0); Mean Corpuscular HGB Conc 34.1 g/dL (31.5-36.5); Mean Corpuscular Volume 88 fL (80-100); Mean Platelet Volume 10.9 fL (9.1-12.4); RDW Coefficient Variation 16.3 % (11.7-14.2); RDW Standard Deviation 51.6 fL (35.1-46.3); Red Blood Cell Count 2.41 M/mm3 (4.30-5.90)
[2024-02-22 06:24] LABS: BASOPHILS PERCENT AUTO 0 % (0-2); EOSINOPHILS PERCENT AUTO 0 % (0-6); IMMATURE GRAN PERCENT AUTO 0 % (0-1); LYMPHOCYTES ABSOLUTE AUTO 0.14 K/mm3 (0.84-5.20); LYMPHOCYTES PERCENT AUTO 78 % (21-46); MONOCYTES ABSOLUTE AUTO 0.03 K/mm3 (0.16-1.47); MONOCYTES PERCENT AUTO 17 % (4-13); NEUTROPHILS ABSOLUTE AUTO 0.01 K/mm3 (1.96-9.15); NEUTROPHILS PERCENT AUTO 6 % (41-73)
[2024-02-22 06:26] LABS: Platelet Count 17 K/mm3 (150-400); White Blood Cell Count 0.18 K/mm3 (4.00-11.30)
[2024-02-22 06:40] LABS: Bun/Creatinine Ratio 37.9 (12.0-20.0); Calcium, Blood 8.9 mg/dL (8.5-10.1); Creatinine, Blood 1.03 mg/dL (0.60-1.20); Potassium, Blood 3.2 mmol/L (3.5-5.5)
[2024-02-22] MEDS ORDERED: Potassium Chloride 20 MEQ TabCR PO ONE ×2 (07:00→09:25)
[2024-02-22 07:37] LABS: BASOPHILS PERCENT MAN 0 % (0-2); EOSINOPHILS PERCENT MAN 0 % (0-6); LYMPHOCYTES ABSOLUTE MAN 0.16 K/mm3 (0.84-5.20); LYMPHOCYTES PERCENT MAN 92 % (21-46); MONOCYTES PERCENT MAN 0 % (4-13); NEUTROPHILS ABSOLUTE MAN 0.01 K/mm3 (1.96-9.15); SEG NEUTROPHILS PERCENT MAN 8 % (41-73); TOTAL CELLS COUNTED 25
[2024-02-22] MEDS ORDERED: Amoxicillin/Clavulanate K 875 MG Tab PO SCH (12:00)
--- NOTE | 2024-02-22 19:46 | NUR ---
SHIFT SUMMARY: PT A/O X4. PLEASANT AND COOPERATIVE WITH CARE. PT WORKED WITH PHYSICAL THERAPY THIS SHIFT. PLAN FOR PT TO GO TO [facility] TODAY POSTPONED D/T STAFFING ISSUES AT FACILITY. PLAN FOR PT TO D/C TOMORROW. PT RECEIVED 1U PLATELETS AND PRBC TODAY. BOTH LAC AND LFA IV LEAKING LARGE AMOUNTS OF PRBS. AROUND 275mL OF PRBC INFUSED PRIOR TO EXPIRATION. NEW IV PLACED BY JOSSY ELLIOTT IN [facility]. PT C/O LACK OF APPETITE AND NAUSEA. PT STATES HE IS HAVING DIFFICULY SWALLOWING. PUREE DIET ORDERED PER PT REQUEST. ZOFRAN GIVEN PER EMAR. PT ALSO C/O GAS PAIN. MEDICATED PER EMAR. CALL LIGHT IN REACH. BED IN LOWEST POSITION.
[2024-02-22] MEDS ORDERED: ACYC400 PO (19:53)
[2024-02-22] MEDS ORDERED: AMOX875 PO (19:53)
[2024-02-22] MEDS ORDERED: Diflucan100 MG PO (19:54)
[2024-02-22] MEDS ORDERED: JUVEN PACKET1 EAC3 PO (19:54)
[2024-02-22] MEDS ORDERED: SENN187 PO (19:55)
[2024-02-22] MEDS ORDERED: VISBIOME 112.51 EACH PO (19:55)
[2024-02-22] MEDS ORDERED: MIRALAX17 GM PO (19:55)
[2024-02-22] MEDS ORDERED: AEROBIKA1 EACH MC (19:56)
[2024-02-22] MEDS ORDERED: LEVFLO500 PO (19:56)
[2024-02-22] MEDS ORDERED: POTCHL20ER PO (19:57)
[2024-02-22] MEDS ORDERED: Prochlorperazine Edisylate 10 mg Vial IV PRN (22:45)
[2024-02-23 05:16] VITALS: BP 132/54
[2024-02-23 06:00] LABS: Hematocrit 22.7 % (37.0-53.0); Hemoglobin 7.8 g/dL (13.5-17.5); Mean Corpuscular HGB 29.9 pg (26.0-34.0); Mean Corpuscular HGB Conc 34.4 g/dL (31.5-36.5); Mean Corpuscular Volume 87 fL (80-100); Mean Platelet Volume 10.6 fL (9.1-12.4); RDW Coefficient Variation 15.8 % (11.7-14.2); RDW Standard Deviation 50.4 fL (35.1-46.3); Red Blood Cell Count 2.61 M/mm3 (4.30-5.90)
[2024-02-23 06:08] LABS: Platelet Count 13 K/mm3 (150-400); White Blood Cell Count 0.21 K/mm3 (4.00-11.30)
--- NOTE | 2024-02-23 06:36 | NUR ---
SHIFT SUMMARY NOC PT A/O X 4. PLEASANT AND COOPERATIVE WITH CARE. VSS. NO ACUTE CHANGES TO REPORT. ON NEUTROPENIC PRECAUTIONS. HAS PUREWICK IN PLACE. ON O2 7L/NC SPO2 >92% ON CONTINOUS BIOX. PT LOWER ABD PAIN AND NAUSEA BEING MANAGED PER EMAR. CRITICAL LABS WBC 0.21 AND PLT 13, HOSPITALIST NOTIFIED AND NO FURTHER ORDERS GIVEN. PT EXPECTED TO DISCHARGE TO [facility] TODAY. PT CURRENTLY RESTING WITH BED IN LOWEST POSITION, AND CALL LIGHT WITHIN REACH.
[2024-02-23] MEDS ORDERED: Potassium Chloride 20 MEQ TabCR PO ONE (07:30)
[2024-02-23 08:07] VITALS: BP 138/59
[2024-02-23 08:34] LABS: Bun/Creatinine Ratio 42.1 (12.0-20.0); Calcium, Blood 9.3 mg/dL (8.5-10.1); Creatinine, Blood 1.14 mg/dL (0.60-1.20); Potassium, Blood 3.9 mmol/L (3.5-5.5)
[2024-02-23 14:38] VITALS: BP 120/61
[2024-02-23] MEDS ORDERED: Benzonatate 100 MG Cap PO PRN (15:55)
--- NOTE | 2024-02-23 17:47 | NUR ---
SHIFT SUMMARY PT CONT LEVEL OF CARE. PT IS A&O X4 AND REPOSITIONED EVERY TWO HOURS. PT WAS SUPPOSE TO DC THIS SHIFT TO SNF. DR MICHAEL DECIDED TO KEEP PT TO MONITOR D/T PLT COUNT AND SAID HE WOULD REEVALUATE FOR DC TOMORROW. PT FAMILY CALLED AND UPDATED THIS SHIFT. PT HAS BEEN SWITCHED TO 8L VIA OXY MASK D/T O2 STAT AT 85 ON 7L VIA NC. PT C/O COUGH THIS SHIFT RECIEVED NEW ORDER FOR TESSLON PEARLS PRN ADMINISTERED ONCE THIS SHIFT WITH EFFECTIVENESS. PT HAS ALSO VOICED C/O GENERALIZED PAIN PRN PAIN MEDS ADMINISTERED WITH LITTLE EFFECTIVENESS.
[2024-02-23 19:10] VITALS: BP 126/68
[2024-02-24] VITALS (9 sets, daily range): BP systolic 113–141; BP diastolic 61–82
[2024-02-24 06:16] LABS: Hematocrit 21.9 % (37.0-53.0); Hemoglobin 7.4 g/dL (13.5-17.5); Mean Corpuscular HGB Conc 33.8 g/dL (31.5-36.5); Mean Corpuscular Volume 89 fL (80-100); RDW Coefficient Variation 15.6 % (11.7-14.2); RDW Standard Deviation 50.6 fL (35.1-46.3); Red Blood Cell Count 2.47 M/mm3 (4.30-5.90)
[2024-02-24 06:20] LABS: Mean Platelet Volume 13.2 fL (9.1-12.4)
[2024-02-24 06:21] LABS: Platelet Count 5 K/mm3 (150-400)
[2024-02-24 06:22] LABS: White Blood Cell Count 0.18 K/mm3 (4.00-11.30)
[2024-02-24 06:38] LABS: Bun/Creatinine Ratio 46.8 (12.0-20.0); Calcium, Blood 9.5 mg/dL (8.5-10.1); Creatinine, Blood 1.26 mg/dL (0.60-1.20)
--- NOTE | 2024-02-24 07:24 | NUR ---
NOTIFIED BY HEMATOLOGY THAT PT PLT 5 AND WBC 018. HOSPITALIST NOTIFIED AND ORDER GIVEN FOR 1 UNIT IRR PLATELETS TO BE TRANSFUSED.
[2024-02-24] MEDS ORDERED: LORazepam 0.5 MG Tab PO PRN (11:45)
[2024-02-24 14:22] LABS: Hematocrit 21.8 % (37.0-53.0); Hemoglobin 7.3 g/dL (13.5-17.5); Mean Corpuscular HGB 29.3 pg (26.0-34.0); Mean Corpuscular HGB Conc 33.5 g/dL (31.5-36.5); Mean Corpuscular Volume 88 fL (80-100); RDW Coefficient Variation 15.7 % (11.7-14.2); RDW Standard Deviation 49.9 fL (35.1-46.3); Red Blood Cell Count 2.49 M/mm3 (4.30-5.90)
[2024-02-24 14:31] LABS: Platelet Count 29 K/mm3 (150-400); White Blood Cell Count 0.17 K/mm3 (4.00-11.30)
--- NOTE | 2024-02-24 17:58 | NUR ---
SHIFT SUMMARY; RECEIVED 1 UNIT PLATELETS TODAY. NO REACTION NOTED. PATIENT VERY PAINFULL AND ANXIOUS THIS AFTERNOON AFTER FAMILY VISITS. ATIVAN AND ROXYCODONE ADMIN AT 1800. PATIENT REFUSES MOST OF MEALS TODAY. ONLY DRINKING JUICES AND PART OF A MILK SHAKE BROUGHT IN BY FAMILY MEMBER. HE DESATS VERY QUICKLY AND HAS TO BE REMINDED TO REPLACE MASK WHEN HE REMOVES TO TAKE DRINK OF FLUIDS. CRITICAL LEVEL PLATELETS 29 AFTER I UNIT PLATELETS ADMIN. WBC IS 0.17, PATIENT AO X 4. ABLE TO MAKE HIS NEEDS KNOWN.
[2024-02-25 05:20] VITALS: BP 114/57
[2024-02-25 05:28] LABS: Hematocrit 21.3 % (37.0-53.0); Hemoglobin 7.2 g/dL (13.5-17.5); Mean Corpuscular HGB Conc 33.8 g/dL (31.5-36.5); Mean Corpuscular Volume 89 fL (80-100); Mean Platelet Volume 10.1 fL (9.1-12.4); RDW Coefficient Variation 15.5 % (11.7-14.2); RDW Standard Deviation 50.7 fL (35.1-46.3)
[2024-02-25 05:35] LABS: BASOPHILS PERCENT AUTO 0 % (0-2); EOSINOPHILS PERCENT AUTO 0 % (0-6); IMMATURE GRAN PERCENT AUTO 0 % (0-1); LYMPHOCYTES PERCENT AUTO 83 % (21-46); MONOCYTES ABSOLUTE AUTO 0.03 K/mm3 (0.16-1.47); MONOCYTES PERCENT AUTO 13 % (4-13); NEUTROPHILS ABSOLUTE AUTO 0.01 K/mm3 (1.96-9.15); NEUTROPHILS PERCENT AUTO 4 % (41-73)
[2024-02-25 05:36] LABS: Platelet Count 18 K/mm3 (150-400); White Blood Cell Count 0.24 K/mm3 (4.00-11.30)
[2024-02-25 06:12] LABS: Albumin, Blood 1.8 g/dL (3.4-5.0); Albumin/Globulin Ratio 0.5 (0.8-1.8); Bilirubin, Total 2.3 mg/dL (0.1-1.0); Bun/Creatinine Ratio 49.7 (12.0-20.0); Calcium, Blood 9.7 mg/dL (8.5-10.1); Creatinine, Blood 1.75 mg/dL (0.60-1.20); Globulin, Blood 3.5 g/dL (2.2-4.0); Potassium, Blood 5.2 mmol/L (3.5-5.5); Total Protein, Blood 5.3 g/dL (6.4-8.2)
--- NOTE | 2024-02-25 06:16 | NUR ---
SHIFT SUMMARY NOC PT A/O X 4. PLEASANT AND COOPERATIVE WITH CARE. VSS. STILL ON 8L/OXYMIZER MASK, PT DESATS INTO LOW 70'S AND HIGH 60'S WITHIN A MINUTE OF TAKING OFF O2, AND TAKES A FEW MINUTES TO RECOVER. PT HAS HAD A FEW EPISODES OF MILE HEMOPTYSIS, HOSPITALIST NOTIFIED AND IS AWARE. ON NEUTOPENIC ISOLATION WBC 0.24 DUE TO LEUKEMIA. PLT 18 DOWN FROM 29 AFTER 1 UNIT IRRADIATED PLATELETS INFUSED YESTERDAY. PUREWICK IN PLACE FOR INCONTINENCE. PT ALSO UNDERSTANDS THAT IF CONDITION WORSENS THAT COMFORT CARE MEASURES WILL GO INTO EFFECT AND IS AGREEABLE IF SITUATION ARISES. PT HAS STAGE 1 PI ON COCCYX BLANCHABLE, BARRIER CREAM AND MEPILEX IN PLACE C/D/I. PT CURRENTLY RESTING WITH BED IN LOWEST POSITION, AND CALL LIGHT WITHIN REACH.
[2024-02-25] MEDS ORDERED: NS 250 ML IV ONE (11:38)
--- NOTE | 2024-02-25 11:46 | NUR ---
Met with pt's sister and son this morning at pt's bedside. The patient is having moments of lucidity, but appears to be beginning to transition. He is able to answer some questions, but is increasingly confused. Pt's respirations are labored, and he answers, "yes" when asked if he's having trouble breathing. He also states he's hurting "everywhere." The family have elected comfort care, and Dr. Leo is placing the comfort orders now. Will continue to provide emotional support to family, and symptom management for the patient.
[2024-02-25] MEDS ORDERED: Scopolamine Hydrobromide Patch TOP PRN (11:55)
[2024-02-25] MEDS ORDERED: LORazepam 1 MG Tab PO PRN (11:55)
[2024-02-25] MEDS ORDERED: Morphine Sulfate 20 MG/1ML 1 ML Oral Syringe SL PRN (11:55)
[2024-02-25] MEDS ORDERED: Atropine Sulfate 1% Opth Soln 2ML BTL SL PRN (12:00)
[2024-02-25] MEDS ORDERED: Morphine Sulfate 10 MG/ML 1MLSYR IV PRN (17:20)
--- NOTE | 2024-02-25 17:46 | NUR ---
Pt is actively passing. He has continued to frequently change positions, with noisy and moist breathing. He is moaning loudly, remains on 9L/02 per mask. updated medications, added Morphine IV for use if roxanol isn't enough for labored breathing and pain. Lorazepam order also updated for anxiety. Bedside RN aware, and in agreement.
--- NOTE | 2024-02-25 18:32 | NUR ---
SHIFT SUMMARY PATIENT TRANSITIONED TO COMFORT CARE THIS AFTERNOON. WAS A/OX4 THIS AM, ABLE TO MAKE NEEDS KNOWN, BUT HAS RAPIDLY DECLINED. CURRENTLY RESPONDS TO VERBAL STIMULI, LETHARGIC. PALLIATIVE CARE ON BOARD AND CALLED MULTIPLE TIMES FOR MANAGEMENT OF BREATHING AND PAIN. PATIENT COMPLAINING OF PAIN, ROXANOL AND MORPHINE GIVEN PER AUG. AGONAL BREATHING NOTED, PATIENT CONTINUOUS TO BE ON 9L SUPPLEMENTAL OXYGEN VIA MASK FOR COMOFORT. CONTINUOUS PULSE OX REMOVED. TELEMETRY DISCONTINUED. FAMILY AT BEDSIDE ALL OF SHIFT. WOUND CARE ORDERS RECIEVED, DRESSED 02/24 BY [facility] NURSE. COMFORT CART PROVIDED TO FAMILY. ATROPINE DROPS GIVEN PER AUG. PATIENT IS IMMINENTLY DYING, FAMILY AWARE AND CONSOLED. WILL CONTINUE COMFORT MEASURES, ORAL SUCTION AT BEDSIDE AND MALE PUREWICK IN PLACE. NO OTHER CONCERNS AT THIS TIME.
--- NOTE | 2024-02-26 02:25 | NUR ---
PT AT 0035 DURING THIS SHIFT. TIME OF CONFIRMED BY RN SAVANA CERVANTES. SISTER AND SON BY THE BEDSIDE. SON CHOOSING [facility] THE HOME. HOME REQUESTED BY [facility] REANNA.Nina AT 0225. CHARGE NURSE SERAFIN Diaz NOTIFIED. ALL PT BELONGINGS REMOVED AND TAKEN WITH THE FAMILY MEMBERS. PT WAS A .
== END 2024-02-26 01:56 | DRG 871 ==
LOC: ER 21:18 → MEDS 02-15 01:08 → ERHOLD 02-15 01:08 → MEDS 02-15 16:07 → ENPENDDIS 02-22 13:51 → MEDS 02-26 01:56
PROVIDERS: Emergency Medicine; Hospitalist; Internal Medicine Critical Care Medicine; Student in an Organized Health Care Education/Training Program; ADMIT Internal Medicine
PROC: 3E03329 Introduction of Other Anti-infective into Peripheral Vein, Percutaneous Approach (ICD-10-PCS; 2024-02-15)
PROC: 0T9B70Z Drainage of Bladder with Drainage Device, Via Natural or Artificial Opening (ICD-10-PCS; 2024-02-15)
PROC: 30233N1 Transfusion of Nonautologous Red Blood Cells into Peripheral Vein, Percutaneous Approach (ICD-10-PCS; principal; 2024-02-20)
PROC: 30233R1 Transfusion of Nonautologous Platelets into Peripheral Vein, Percutaneous Approach (ICD-10-PCS; 2024-02-20)
DX: A41.9 Sepsis, unspecified organism (principal); E43 Unspecified severe protein-calorie malnutrition; I50.33 Acute on chronic diastolic (congestive) heart failure; J96.01 Acute respiratory failure with hypoxia; J15.69 Pneumonia due to other Gram-negative bacteria; C92.00 Acute myeloblastic leukemia, not having achieved remission; Z51.5 Encounter for palliative care; Z66 Do not resuscitate; J44.0 Chronic obstructive pulmonary disease with (acute) lower respiratory infection; D84.9 Immunodeficiency, unspecified; D61.818 Other pancytopenia; Z68.1 Body mass index [BMI] 19.9 or less, adult; I25.10 Atherosclerotic heart disease of native coronary artery without angina pectoris; H57.89 Other specified disorders of eye and adnexa; I11.0 Hypertensive heart disease with heart failure; E03.9 Hypothyroidism, unspecified; K12.30 Oral mucositis (ulcerative), unspecified; F17.210 Nicotine dependence, cigarettes, uncomplicated; I48.0 Paroxysmal atrial fibrillation; K59.09 Other constipation; E78.5 Hyperlipidemia, unspecified; D50.9 Iron deficiency anemia, unspecified; F32.A Depression, unspecified; M19.90 Unspecified osteoarthritis, unspecified site; L89.152 Pressure ulcer of sacral region, stage 2; M54.9 Dorsalgia, unspecified; E86.0 Dehydration; I34.0 Nonrheumatic mitral (valve) insufficiency; G89.29 Other chronic pain; Z88.8 Allergy status to other drugs, medicaments and biological substances; Z79.01 Long term (current) use of anticoagulants; Z79.899 Other long term (current) drug therapy; I25.2 Old myocardial infarction; Z95.5 Presence of coronary angioplasty implant and graft; Z98.890 Other specified postprocedural states; Z86.73 Personal history of transient ischemic attack (TIA), and cerebral infarction without residual deficits; Z95.1 Presence of aortocoronary bypass graft; Z79.890 Hormone replacement therapy; W18.30XA Fall on same level, unspecified, initial encounter; Z79.02 Long term (current) use of antithrombotics/antiplatelets
CPT/HCPCS: 36415; 36430; 70450; 71045; 71260; 72125; 74177; 80048; 80053; 80202; 80320; 81001; 82248; 83605; 83690; 83735; 83880; 84100; 84484; 85014; 85018; 85025; 85027; 85045; 85610; 86480; 86850; 86900; 86901; 86923; 87040; 87070; 87077; 87086; 87116; 87186; 87205; 87449; 87556; 87633; 87798; 93005; 93010; 94640; 94664; 94762; 97110; 97161; 97530; 99285-25; A9270; C8929; J0690; J0692; J0696; J0780; J1940; J2270; J2405; J2543; J3370; J7030; J7040; J7050; P9016; P9035; P9037; Q9957; Q9967

== ENCOUNTER 2024-02-15 01:47 | Day surgery (SDC) | payer OTHER ==
[2024-02-14 10:56] LABS: Hematocrit 25.1 % (37.0-53.0); Hemoglobin 8.6 g/dL (13.5-17.5); Mean Corpuscular HGB Conc 34.3 g/dL (31.5-36.5); Mean Corpuscular Volume 91 fL (80-100); Mean Platelet Volume 11.2 fL (9.1-12.4); RDW Coefficient Variation 15.6 % (11.7-14.2); RDW Standard Deviation 50.4 fL (35.1-46.3); Red Blood Cell Count 2.77 M/mm3 (4.30-5.90)
[2024-02-14 11:02] LABS: BASOPHILS PERCENT AUTO 0 % (0-2); EOSINOPHILS PERCENT AUTO 0 % (0-6); IMMATURE GRAN PERCENT AUTO 0 % (0-1); LYMPHOCYTES ABSOLUTE AUTO 0.25 K/mm3 (0.84-5.20); LYMPHOCYTES PERCENT AUTO 93 % (21-46); MONOCYTES ABSOLUTE AUTO 0.01 K/mm3 (0.16-1.47); MONOCYTES PERCENT AUTO 4 % (4-13); NEUTROPHILS ABSOLUTE AUTO 0.01 K/mm3 (1.96-9.15); NEUTROPHILS PERCENT AUTO 4 % (41-73)
[2024-02-14 11:04] LABS: Platelet Count 9 K/mm3 (150-400); White Blood Cell Count 0.27 K/mm3 (4.00-11.30)
[2024-02-14 11:10] LABS: Albumin, Blood 2.7 g/dL (3.4-5.0); Albumin/Globulin Ratio 0.8 (0.8-1.8); Bilirubin, Total 2.2 mg/dL (0.1-1.0); Bun/Creatinine Ratio 22.7 (12.0-20.0); Calcium, Blood 8.3 mg/dL (8.5-10.1); Creatinine, Blood 0.75 mg/dL (0.60-1.20); Globulin, Blood 3.2 g/dL (2.2-4.0); Potassium, Blood 4.1 mmol/L (3.5-5.5); Total Protein, Blood 5.9 g/dL (6.4-8.2)
[2024-02-14 11:30] LABS: BASOPHILS PERCENT MAN 0 % (0-2); EOSINOPHILS PERCENT MAN 0 % (0-6); LYMPHOCYTES ABSOLUTE MAN 0.22 K/mm3 (0.84-5.20); LYMPHOCYTES PERCENT MAN 84 % (21-46); MONOCYTES ABSOLUTE MAN 0.02 K/mm3 (0.16-1.47); MONOCYTES PERCENT MAN 8 % (4-13); NEUTROPHILS ABSOLUTE MAN 0.02 K/mm3 (1.96-9.15); SEG NEUTROPHILS PERCENT MAN 8 % (41-73); TOTAL CELLS COUNTED 25
[~2024-02-15 01:47] MED LIST changes: +ALLO100 PO; +CLOP75 PO; +GABA100 PO; +LEVSOD137 PO
== END 2024-02-15 23:11 | disposition home or self-care (01) ==
LOC: ATC 01:47 → EDSTATUS 10:00 → ATC 10:00
PROVIDERS: Internal Medicine Hematology & Oncology
DX: C92.00 Acute myeloblastic leukemia, not having achieved remission (principal); D69.6 Thrombocytopenia, unspecified; I25.10 Atherosclerotic heart disease of native coronary artery without angina pectoris; J44.9 Chronic obstructive pulmonary disease, unspecified; E78.5 Hyperlipidemia, unspecified; E03.9 Hypothyroidism, unspecified; I10 Essential (primary) hypertension; F17.210 Nicotine dependence, cigarettes, uncomplicated; Z79.01 Long term (current) use of anticoagulants; Z79.890 Hormone replacement therapy; Z79.899 Other long term (current) drug therapy
CPT/HCPCS: 36415; 80053; 85025